=== PATIENT | female | born 1995 | race Caucasian/White ===

== ENCOUNTER → 2024-11-01 | Outpatient (CLI) | payer BC | LOC: LAB 18:59 → LAB SHORT 18:59 | DX: R30.0 Dysuria (principal) | CPT/HCPCS: 87077; 87086; 87186 ==

== ENCOUNTER → 2024-12-12 | Outpatient (CLI) | payer BC | END | disposition home or self-care (01) | LOC: LAB 17:48 → LAB SHORT 17:48 | DX: R30.0 Dysuria (principal) | CPT/HCPCS: 87086 ==